=== PATIENT | male | born 1975 | race Two or more races ===

== ENCOUNTER 2016-11-20 16:20 | Emergency (ER) | payer SELFPAY ==
--- NOTE | 2016-11-20 19:05 | RAD ---
Exam: Two-view chest COMPARISON: 01/20/2015 INDICATION: Cough for 3 weeks. FINDINGS: PA and lateral views of the chest were obtained. Cardiac silhouette is within normal limits and stable. Lungs are well-inflated. There is no focal airspace disease or pleural effusion. Bones of the chest wall within normal limits. IMPRESSION: Negative two-view chest.
== END 2016-11-20 19:55 | disposition home or self-care (01) ==
LOC: ED 16:20
DX: J11.1 Influenza due to unidentified influenza virus with other respiratory manifestations (principal); R10.9 Unspecified abdominal pain; R05 Cough

== ENCOUNTER 2017-01-07 10:29 | Emergency (ER) | payer SELFPAY ==
[2017-01-07] MEDS ORDERED: IOPAMIDOL 370 (76%) 100 ML VIAL IV ONE (10:30)
[2017-01-07] MEDS ORDERED: ASPIRIN CHEWTAB 81 MG TABLET ONE (11:19)
[2017-01-07] MEDS ORDERED: LACTATED RINGERS 1,000 ML ONE ×2 (11:19→14:24)
[2017-01-07] MEDS ORDERED: MAALOX/LIDO2%VISC/SIMETHICONE 40 ML BOT ONE (11:19)
[2017-01-07 11:37] LABS: I-STAT CREATININE 0.9 mg/dL (0.6-1.3)
[2017-01-07 11:42] LABS: ABSOLUTE NEUTROPHIL COUNT 5.4 K/mm3 (1.8-7.7); BASO # 0.1 K/mm3 (0.0-0.2); BASO % 0.7 % (0.2-1.0); EOS # 0.2 (0.0-0.5); EOS % 2.3 % (0.9-2.9); HEMATOCRIT 46.5 % (32.0-52.0); HEMOGLOBIN 16.1 gm/l (14.0-18.0); IMM NEUT # 0.1 K/mm3 (0-0.2); IMM NEUT% 0.7 % (0-1); LYMPH # 2.6 (1.0-4.8); LYMPH % 28.6 % (15-45); MEAN CELL VOLUME 92.1 fl (80.0-94.0); MEAN CORPUSCULAR HEMOGLOBIN 31.9 pg (27.0-31.0); MEAN CORPUSCULAR HGB CONC 34.6 g/dl (33.0-37.0); MEAN PLATELET VOLUME 13.7 fl (7.4-10.4); MONO # 0.7 (0.0-0.8); MONO % 7.7 % (4-12); PLATELET COUNT 89 K/mm3 (130-400); RED CELL DISTRIBUTION WIDTH 13.2 % (11.5-14.5)
--- NOTE | 2017-01-07 11:54 | RAD ---
CHEST - 2 VIEWS COMPARISON: Chest 2 views, 11/20/2016 HISTORY: Chest pain for 2 days. FINDINGS: Views: Frontal and lateral chest Lungs: Normal Heart and vessels: Normal Trachea and bronchi: Normal Mediastinum and joann: Normal Costophrenic sulci: Normal Chest wall and bones: Normal. Upper abdomen: Normal. IMPRESSION: Negative 2 view chest.
[2017-01-07 12:05] LABS: TROPONIN I < 0.01 ng/ml (0.0-0.06)
[2017-01-07 12:10] LABS: CKMB ISOENZYME 0.8 ng/ml (0.6-6.3)
[2017-01-07] MEDS ORDERED: MORPHINE SULFATE 4 MG/ML SYRINGE ONE (14:24)
[2017-01-07] MEDS ORDERED: PANTOPRAZOLE SODIUM 40 MG VIAL IV ONE (14:24)
--- NOTE | 2017-01-07 15:03 | CT ---
ABD/PELVIS W/ CON COMPARISON: CTA abdomen and pelvis, 05/22/2015 HISTORY: Epigastric pain that radiates to the back. With alcohol use 3 days ago. Was drinking 20 beers per day. Surgical history of hernia repair. Technique: No oral contrast. Intravenous injection 100 mL Isovue 300. Using a [employer] Aquilion [address] scanner, images were obtained from the diaphragm to the floor the pelvis. An automated dose reduction technique was used to minimize patient radiation dose. Dose information: CTDIvol (mGy): 23.70 DLP(mGycm): 1317.80 FINDINGS: Lung bases: Normal. Inferior mediastinum and heart: Normal. Liver: Macrolobulated surface. Normal enhancement. No mass or cyst. Gallbladder:Normal. Bile ducts: Normal. Pancreas: Normal. Spleen: Normal. Adrenal glands: Normal. Kidneys: Normal. Ureters: Normal Urinary bladder: Normal. Prostate gland and seminal vesicles: Normal. Blood vessels: Normal Lymph nodes: Normal Stomach: Normal Duodenum: Normal Small intestine: Normal Appendix: Normal Colon: Normal. Mesentery: There are 2 coarse calcifications in the mid mesentery, surrounding branches of the superior mesenteric vein, 15 mm and 23 mm, evidence of prior infection. Abdominal wall and supporting musculature: Left inguinal hernia, at least 11 cm x 4.5 cm, containing fat. Bones: No acute finding. Mild degenerative changes in the spine. IMPRESSION: 1. No acute finding. 2. Evidence of cirrhosis of the liver. No ascites. No varicosities. 3. 2 coarse calcifications in the mid mesentery, evidence of prior granulomatous infection. 4. No change in fat-containing left inguinal hernia, at least 11 cm x 4.5 cm. The report was sent to the emergency department electronic medical record system 01/07/2017 at 15:05
[2017-01-08 17:49] LABS: ALB/GLOB RATIO 0.8 (>1.0); ALBUMIN 4.1 gm/dL (3.5-5.7); CALCIUM 9.5 mg/dL (8.6-10.3)
== END 2017-01-07 15:31 | disposition home or self-care (01) ==
LOC: ED 10:29
DX: K29.20 Alcoholic gastritis without bleeding (principal); F10.29 Alcohol dependence with unspecified alcohol-induced disorder; I10 Essential (primary) hypertension
CPT/HCPCS: 83690; 82150; 85025; 82553; 80053; 84484; 71020; 74177; 96375; 99284 ×2; 96374; 93005; A9270 ×2; J2270; C9113; J7120 ×2; Q9967